=== PATIENT | female | born 1995 | race American Indian/Alaskan Native ===

== ENCOUNTER 2017-10-18 10:18 | Emergency (ER) | payer SELFPAY ==
[2017-10-18 10:25] VITALS: BP 156/104
== END 2017-10-18 18:13 | disposition left against medical advice (07) ==
LOC: ED 10:18
DX: R22.2 Localized swelling, mass and lump, trunk (principal); Z53.21 Procedure and treatment not carried out due to patient leaving prior to being seen by health care provider

== ENCOUNTER 2017-10-24 09:23 | Emergency (ER) | payer SELFPAY ==
--- NOTE | 2017-10-24 12:49 | Emergency Department Report ---
Abscess Boil HPI - HPI Chief Complaint: Skin/Abscess/Foreign Body Stated Complaint: KNOT/CHEST Time Seen by Provider: 10/24/17 12:22 Duration: >1 Week (2 weeks) Location: Chest Severity: None History: No Fever, No Pain, No Purulent Drainage, No Numbness, No Foreign Body, No Previous History, No Insect Bite HPI: Social 22-year-old -[place] female who presents with a mass to left side of chills 2 weeks. Patient states she was seen by here October 22 for similar symptoms. Patient states mass was originally smaller than presentation today which prompted her to come in for reevaluation. Patient denies drainage, fever, chest pain and shortness of breath, erythema, warmth, and pain. Allergies/Adverse Reactions: Allergies Allergy/AdvReac Type Severity Reaction Status Date / Time No Known Allergies Allergy Verified 10/24/17 09:27 ED Review of Systems ROS: Stated complaint: KNOT/CHEST Other details as noted in HPI Constitutional: denies: chills, fever Respiratory: denies: cough, shortness of breath, wheezing Cardiovascular: denies: chest pain, palpitations Gastrointestinal: denies: abdominal pain, nausea, diarrhea Skin: lesions (mass to left chest wall). denies: rash Neurological: denies: headache, weakness, paresthesias Psychiatric: denies: anxiety, depression ED Past Medical Hx - Past Medical History Hx Hypertension: Yes - Surgical History Past Surgical History?: No - Social History Smoking Status: Never Smoker Substance Use Type: None ED Abscess Boil Physical Exam - Exam General: Vital signs noted. No distress. Alert and acting appropriately. Front/Back of Body, Lg (Color): 1 - 2 cm nodule to left mid sternum, nontender, no erythema Size: 2 cm Exam: Yes Normal Neurologic Exam, Yes Normal Circulation, No Tenderness, No Fluctuance, No Surrounding Cellulites/Erythema, No Lymphangitis, No Crepitation , No Heart Murmur ED Course Vital Signs 10/24/17 09:27 Temperature 98.8 F Pulse Rate 92 H Respiratory 18 Rate Blood Pressure 169/106 O2 Sat by Pulse 99 Oximetry Critical care attestation.: If time is entered above; I have spent that time in minutes in the direct care of this critically ill patient, excluding procedure time. ED Medical Decision Making - Lab Data Result diagrams: 10/24/17 14:37 10/24/17 14:37 - Radiology Data Radiology results: report reviewed, image reviewed CT CHEST WITH CONTRAST: HISTORY: mass to chest midline. COMPARISON: none. TECHNIQUE: Helical CT in 1.25mm intervals following IV contrast. Sagittal and coronal reformatted images. FINDINGS: Thyroid gland: Normal. Tracheobronchial tree: Normal. Esophagus: Normal. Heart: Normal. Pericardium: Normal. Mediastinum: Normal. Lung Prajapati: Normal. Pleural Spaces: Normal. Musculoskeletal: Normal. IMPRESSION: Unremarkable CT chest with contrast. No mass is visualized. - Medical Decision Making Patient was examined by myself in fast track. Blood pressure elevated on arrival, past medical history of hypertension and asymptomatic. Patient is in no acute distress. Obtained labs and CTA of chest. No acute findings on CT. Platelets elevated and reevaluate with PCP. WBC's are low, patient is asymptomatic. Patient informed of results. Follow up with general surgery for management of lymphoma. Patient discharged home in stable condition. Follow up with PCP in 2-3 days. ED Disposition Clinical Impression: Viral syndrome, Asymptomatic hypertension, Lipoma of chest wall Disposition: - TO HOME OR SELFCARE Is pt being admited?: No Does the pt Need Aspirin: No Condition: Stable Instructions: Lipoma (ED), Viral Syndrome (ED), Hypertension (ED) Additional Instructions: Encourage stop smoking to reduce cardiovascular risk. Moderate caffeine consumption is acceptable. Begin and maintain aerobic exercise, with a goal of at least 30 minutes of moderate intensity, dynamic aerobic exercise (walking, jogging, cycling, or swimming) 5 days per week to total 150 minutes as tolerated or recommended by a physician. Take medication daily as prescribed. Follow-up with Gen. surgery floor evaluation of a lipoma of chest.. Follow up with Primary Care Provider in 1 week. Referrals: [facility] [Outside] - 3-5 Days [facility] [Outside] - 3-5 Days AMARILYS ROBERT MD [Referring] - 3-5 Days Forms: Work/School Release Form(ED) Time of Disposition: 16:40 Print Language: PRYDEINIG
[2017-10-24 14:35] LABS: HCG Qualitative,Urine Negative (Negative)
[2017-10-24 14:47] LABS: Hematocrit 34.2 % (30.3-42.9); Hemoglobin 10.8 gm/dl (10.1-14.3); Mean Corpuscular HGB Conc 32 % (30-34); Mean Corpuscular Volume 71 fl (79-97); Platelet Count 473 K/mm3 (140-440); Red Blood Count 4.82 M/mm3 (3.65-5.03)
[2017-10-24 14:51] LABS: Mean Corpuscular Hemoglobin 23 pg (28-32); Red Cell Distribution Width 20.5 % (13.2-15.2)
[2017-10-24 15:17] LABS: BUN/Creatinine Ratio 13; Blood Urea Nitrogen 9 mg/dL (7-17); Calcium 9.3 mg/dL (8.4-10.2); Hemolysis Index 4
--- NOTE | 2017-10-24 15:51 | Cat Scan Report ---
CT CHEST WITH CONTRAST: HISTORY: mass to chest midline. COMPARISON: none. TECHNIQUE: Helical CT in 1.25mm intervals following IV contrast. Sagittal and coronal reformatted images. FINDINGS: Thyroid gland: Normal. Tracheobronchial tree: Normal. Esophagus: Normal. Heart: Normal. Pericardium: Normal. Mediastinum: Normal. Lung Prajapati: Normal. Pleural Spaces: Normal. Musculoskeletal: Normal. IMPRESSION: Unremarkable CT chest with contrast. No mass is visualized.
[2017-10-24 16:24] VITALS: BP 156/104
== END 2017-10-24 16:54 | disposition home or self-care (01) ==
LOC: ED 09:23
DX: D17.1 Benign lipomatous neoplasm of skin and subcutaneous tissue of trunk (principal); B34.9 Viral infection, unspecified; I10 Essential (primary) hypertension
CPT/HCPCS: 36415; 71260; 80048; 81025; 85027; 99284; Q9967

== ENCOUNTER 2021-04-15 06:31 | Emergency (ER) | payer OTHER ==
[2021-04-15 06:57] VITALS: BP 166/111
--- NOTE | 2021-04-15 07:46 | Emergency Department Report ---
ED ENT HPI - General Chief complaint: Dental/Oral Stated complaint: PAIN ON LEFT SIDE OF FACE Time Seen by Provider: 04/15/21 07:09 Source: patient Mode of arrival: Ambulatory Limitations: No Limitations - History of Present Illness Initial comments: 25-year-old female presents to the ER today with complaints of dental pain, left lower jaw. Onset yesterday. She woke up this morning with the area swollen. She states that she did call her dentist but they were not able to see her until next week. She states that she came in this morning because the pain got intense while she was at work. She denies any difficulty breathing, trismus, drooling or any additional symptoms. MD complaint: tooth pain -: This morning - Related Data Previous Rx's Medication Instructions Recorded Last Taken Type Clindamycin [Clindamycin CAP] 300 mg PO Q6H #40 cap 04/15/21 Unknown Rx Ibuprofen [Motrin] 600 mg PO Q8H PRN #30 tablet 04/15/21 Unknown Rx traMADoL [Ultram] 50 mg PO Q4HR PRN #10 tablet 04/15/21 Unknown Rx Allergies Allergy/AdvReac Type Severity Reaction Status Date / Time No Known Allergies Allergy Verified 10/24/17 09:27 ED Dental HPI - General Chief complaint: Dental/Oral Stated complaint: PAIN ON LEFT SIDE OF FACE Time Seen by Provider: 04/15/21 07:09 Source: patient Mode of arrival: Ambulatory Limitations: No Limitations - Related Data Previous Rx's Medication Instructions Recorded Last Taken Type Clindamycin [Clindamycin CAP] 300 mg PO Q6H #40 cap 04/15/21 Unknown Rx Ibuprofen [Motrin] 600 mg PO Q8H PRN #30 tablet 04/15/21 Unknown Rx traMADoL [Ultram] 50 mg PO Q4HR PRN #10 tablet 04/15/21 Unknown Rx Allergies Allergy/AdvReac Type Severity Reaction Status Date / Time No Known Allergies Allergy Verified 10/24/17 09:27 ED Review of Systems ROS: Stated complaint: PAIN ON LEFT SIDE OF FACE Other details as noted in HPI Comment: All other systems reviewed and negative Constitutional: denies: chills, diaphoresis, fever, malaise, weakness Eyes: denies: eye pain, eye discharge, vision change ENT: dental pain Respiratory: denies: cough, shortness of breath, wheezing Cardiovascular: denies: chest pain, palpitations, dyspnea on exertion, edema, syncope, paroxysmal nocturnal dyspnea Gastrointestinal: denies: abdominal pain, nausea, diarrhea, constipation, hematemesis, melena, hematochezia Genitourinary: denies: urgency, dysuria, frequency, hematuria, discharge, abnorm al menses, dyspareunia Musculoskeletal: denies: back pain, joint swelling, arthralgia, myalgia Skin: denies: rash, lesions, change in color, change in hair/nails, pruritus Neurological: denies: headache, weakness, numbness, paresthesias, confusion, abnormal gait, vertigo Psychiatric: denies: anxiety, depression, auditory hallucinations, visual hallucinations, homicidal thoughts, suicidal thoughts Hematological/Lymphatic: denies: easy bleeding, easy bruising, swollen glands ED Past Medical Hx - Past Medical History Hx Hypertension: Yes - Social History Smoking Status: Never Smoker Substance Use Type: None - Medications Home Medications: Home Medications Medication Instructions Recorded Confirmed Last Taken Type Clindamycin [Clindamycin CAP] 300 mg PO Q6H #40 cap 04/15/21 Unknown Rx Ibuprofen [Motrin] 600 mg PO Q8H PRN #30 tablet 04/15/21 Unknown Rx traMADoL [Ultram] 50 mg PO Q4HR PRN #10 tablet 04/15/21 Unknown Rx ED Physical Exam - General Limitations: No Limitations General appearance: alert, in no apparent distress - Head Head exam: Present: atraumatic, normocephalic, normal inspection - ENT ENT exam: Present: mucous membranes moist - Expanded ENT Exam Expanded Mouth exam: Present: normal external inspection Teeth exam: Present: dental caries 1 - Dental Tenderness, Other (Dental decay; small dental abscess. no facial cellulitis) Throat exam: Positive: normal inspection - Neck Neck exam: Present: normal inspection. Absent: meningismus - Respiratory Respiratory exam: Absent: respiratory distress - Cardiovascular Cardiovascular Exam: Present: regular rate - Neurological Exam Neurological exam: Present: alert, oriented X3, CN II-XII intact, normal gait - Psychiatric Psychiatric exam: Present: normal affect, normal mood - Skin Skin exam: Present: intact ED Course Vital Signs 04/15/21 06:50 Temperature 98.1 F Pulse Rate 83 Respiratory 18 Rate Blood Pressure 166/111 [Right] O2 Sat by Pulse 99 Oximetry Critical care attestation.: If time is entered above; I have spent that time in minutes in the direct care of this critically ill patient, excluding procedure time. ED Disposition Clinical Impression: Dental abscess Disposition: HOME / SELF CARE / HOMELESS Is pt being admited?: No Does the pt Need Aspirin: No Condition: Stable Instructions: Dental Abscess Additional Instructions: I recommend that you start taking the clindamycin as prescribed until completion. Take the pain medications as prescribed. Keep your appointment with your dentist next week. Return to the ER if your symptoms worsens in any way. Prescriptions: Clindamycin [Clindamycin CAP] 300 mg PO Q6H #40 cap Ibuprofen [Motrin] 600 mg PO Q8H PRN #30 tablet PRN Reason: Pain traMADoL [Ultram] 50 mg PO Q4HR PRN #10 tablet PRN Reason: Pain , Severe (7-10) Referrals: PRIMARY CARE, [Referring] - 3-5 Days Forms: Work/School Release Form(ED) Time of Disposition: 07:45
== END 2021-04-15 07:54 | disposition home or self-care (01) ==
LOC: ED 06:31
DX: K04.7 Periapical abscess without sinus (principal); I10 Essential (primary) hypertension
CPT/HCPCS: 99282